=== PATIENT | female | born 1960 | race Caucasian/White ===

== ENCOUNTER 2025-03-20 04:46 | Emergency (ER) | payer MEDICARE, SELFPAY ==
[2025-03-20 04:48] VITALS: BP 164/84
[2025-03-20 05:05] VITALS: BMI 30.1
--- NOTE | 2025-03-20 06:48 | ED.GENMED ---
History of Present Illness
General
Chief Complaint: Ear Problem
Source: patient
Exam Limitations: none
Time Seen by Provider: 03/20/25 04:51
Nursing documentation reviewed up to this point in time: agreed with
History of Present Illness
History of Present Illness:
Note:
CHIEF COMPLAINT(S)
Hearing aid tip lodged in the ear for approximately six months.
HISTORY OF PRESENT ILLNESS
The patient is a 64-year-old female with past medical history of coronary artery disease, hyperlipidemia, hearing loss who presents with a hearing aid tip lodged in her left ear. She reports that this occurred approximately six months ago but she
only became aware during a visit to her physician. She initially believed she had wax build-up due to the absence of pain or other symptoms, experiencing only a foreign body sensation. Her doctor identified the lodged hearing aid tip during an
examination. The onset corresponds to an event around when the patient was concerned about her young grandchild potentially swallowing the tip. Since realizing the tip was lodged in her ear, the patient has not experienced any drainage or
discomfort, although she has been attempting to resolve the issue for the past month but faced barriers due to personal responsibilities.
During the examination, the hearing aid tip was successfully removed. The patients primary care physician had attempted removal but opted for referral considering the need for specialized removal. No signs of infection were observed post-removal,
though prophylactic antibiotic ear drops have been recommended due to the prolonged presence of the foreign body in the ear canal.
SOCIAL DETERMINANTS AFFECTING HEALTH
The patient mentioned difficulties in attending to her own medical needs due to her responsibilities in raising her grandchildren, indicating a level of family-related stress.
REVIEW OF SYSTEMS
- Ear, Nose, and Throat: Presence of a hearing aid tip in the left ear for approximately six months; no pain; no drainage reported.
- General: No acute distress reported.
PHYSICAL EXAM
General: Alert, no acute distress.
Ear, Nose, Mouth, and Throat: Hearing aid tip was removed from the left ear; mild erythema noted to the left external canal
Skin: Warm and dry, no rashes or lesions
Head: Normocephalic, atraumatic
Eyes: Sclera non-icteric. EOMs intact.
Cardiac: Regular rate
Pulm: Normal respiratory effort
Neuro: CN II-XII intact, no focal neurologic deficits.
Psychiatric: Appropriate mood and affect.
PLAN
1. Start patient on antibiotic ear drops to prevent potential infection due to the prolonged presence of a foreign body.
2. Assure patient regarding the removal process and advise follow-up if symptoms like pain or drainage develop.
3. Educate patient on the importance of timely medical review in the future to prevent complications from similar issues.
DIFFERENTIAL DIAGNOSIS
The Differential Diagnosis includes, in no particular order and is not limited to:
1. Earwax impaction.
2. Otitis externa.
3. Foreign body in the ear canal.
4. Otitis media.
5. Hearing aid dermatitis.
6. Tympanic membrane perforation.
7. Chronic otitis media.
8. Ear canal trauma.
9. Eustachian tube dysfunction.
10. Allergic rhinitis.
MDM/DISPOSITION
64-year-old female presents emergency department today with concerns of a foreign body in her left ear. Patient reports that she has had the tip stuck for multiple months now. She denies any drainage from the ear. Denies any fevers or chills. On
exam the foreign body was successfully removed. There is no evidence of active infection within the canal although there is some mild erythema. Will cover with antibiotic drops.
Past History
Past History
ED Past Medical History: CAD, Hypercholesterolemia and Other (Fibromyalgia, migraines, chronic pain syndrome, hepatitis C)
ED Past Surgical History: Appendectomy, Gynecological and Tonsilectomy
Social History
Tobacco: Smoker
Alcohol: None
Drug: None
Phy Exam
Physical Exam
Physical Exam:
see hpi
Course
Vital Signs
Initial and Last Documented VS:
Initial Vital Signs
Temp Pulse Resp BP Pulse Ox
97.6 F 84 20 164/84 98
03/20/25 04:48 03/20/25 04:48 03/20/25 04:48 03/20/25 04:48 03/20/25 04:48
Last Documented Vital Signs
Temp Pulse Resp BP Pulse Ox
97.6 F 84 20 164/84 98
03/20/25 04:48 03/20/25 04:48 03/20/25 04:48 03/20/25 04:48 03/20/25 06:48
*Pulse Oximetry
SaO2: 98
Oxygen Mode of Delivery: Room air
Patient hypoxic: no
*Critical Care Note
Total Time (30-74mins, 75-104mins- exclusive of procedures): Not Applicable
ED Attending Note
-
Portions of this chart may have been created with voice recognition software.� Occasional wrong word or��sound alike� substitutions may have occurred due to the inherent limitations of voice recognition software.
Discharge Plan
Departure
Patient Disposition: Home (Routine Discharge)
Date of Disposition: 03/20/25
Time of Disposition: 06:21
Patient with high blood pressure during this ER visit?: Yes
Condition: Fair
Discharge Problem:
Foreign body in ear
Instructions: Foreign Body in Ear (DC), BLOOD PRESSURE
Prescriptions:
New
ofloxacin 0.3 % drops
10 drp otic (ear) DAILY 7 Days Qty: 10 0RF
No Action
indomethacin 50 MG capsule
50 mg PO TID Qty: 15 0RF
prednisone 10 MG tablet
10 mg PO DAILY 12 Days 0RF
Rx Instructions:
Take 50 mg �3 days then 40 mg �3 days then 20 mg �3 days then 10 mg �3 days.
Referrals:
UNKNOWN - PT DOES,NOT KNOW [Family Provider]
Activity Restrictions/Additional Instructions:
Your blood pressure was elevated today.
Instill 10 drops into the left ear once daily for 7 days.
Please follow up with your primary care provider.
PLEASE RETURN TO THE ER SHOULD YOU DEVELOP PURULENT DRAINAGE FROM YOUR EAR, EAR PAIN, HEARING LOSS, HEADACHES, INTRACTABLE NAUSEA OR VOMITING, CHEST PAIN, SHORTNESS OF BREATH, OR ANY OTHER SIGNS OR SYMPTOMS WORRISOME TO YOU.
Interventions
Interventions:
*Risk Screen - Suicide Last Done: 03/20/25 06:23
*General Assessment Last Done: 03/20/25 06:23
*Neglect/Abuse Screening Last Done: 03/20/25 06:23
*ED- Fall Risk Assessment Last Done: 03/20/25 06:23
*ED COVID-19 Vaccine History Last Done: 03/20/25 06:23
*Nursing Disposition Last Done: 03/20/25 06:23
Discharge Date and Time
Discharge Date/Time: 03/20/25 06:24
Print Language: ROMANSH
== END 2025-03-20 06:24 | disposition home or self-care (01) ==
LOC: EMR 04:46
PROVIDERS: EMERGENCY PHYSICIAN Student in an Organized Health Care Education/Training Program
DX: T16.2XXA Foreign body in left ear, initial encounter (principal); W44.G1XA Audio device entering into or through a natural orifice, initial encounter; I25.10 Atherosclerotic heart disease of native coronary artery without angina pectoris; E78.00 Pure hypercholesterolemia, unspecified; H91.92 Unspecified hearing loss, left ear; G89.4 Chronic pain syndrome; M79.7 Fibromyalgia; B19.20 Unspecified viral hepatitis C without hepatic coma; F17.200 Nicotine dependence, unspecified, uncomplicated
CPT/HCPCS: 99282; 69200